=== PATIENT | female | born 1955 ===

== ENCOUNTER 2021-07-15 12:00 | Inpatient (IN) | payer OTHER ==
[~2021-07-15] VITALS: Ht 165.1 cm; Wt 105.2 kg
[2021-07-15] MEDS ORDERED: AVAPRO150 MG PO (13:58)
[2021-07-15] MEDS ORDERED: VASOFL PO (13:59)
[2021-07-15] MEDS ORDERED: LIPITOR PO (13:59)
[2021-07-15] MEDS ORDERED: BIOTINEX PO (14:00)
[2021-07-15] MEDS ORDERED: TRIPLE FLEX CA1 EACH PO (14:01)
[2021-07-15] MEDS ORDERED: CALCIUM 600 +1 EAC3 PO (14:01)
[2021-07-15] MEDS ORDERED: NASAL MIST126 ML (14:01)
[2021-07-18] MEDS ORDERED: NAPROXEN500 MG (08:21)
[2021-07-18] MEDS ORDERED: ATORVASTATIN CA10 MG (08:21)
[2021-07-18] MEDS ORDERED: VASOFLEX TABLE1 EACH (08:21)
[2021-07-18] MEDS ORDERED: BIOTIN1 MG (08:23)
[2021-07-21] MEDS ORDERED: INTESTINEX680 M1 PO (10:31)
[2021-07-21] MEDS ORDERED: LEVOFLOXACIN500 MG PO (10:31)
[2021-07-21] MEDS ORDERED: ULTRAM50 MG PO (10:31)
== END 2021-07-21 11:30 | disposition home or self-care (01) | DRG 331 ==
LOC: O/R 07-18 05:40 → SURH 07-18 05:40
PROVIDERS: ADMIT Surgery; ATTEND Surgery
PROC: 0DTP4ZZ Resection of Rectum, Percutaneous Endoscopic Approach (ICD-10-PCS; 2021-07-18)
PROC: 0DBN4ZZ Excision of Sigmoid Colon, Percutaneous Endoscopic Approach (ICD-10-PCS; principal; 2021-07-18 07:00)
DX: K57.20 Diverticulitis of large intestine with perforation and abscess without bleeding (principal); I13.10 Hypertensive heart and chronic kidney disease without heart failure, with stage 1 through stage 4 chronic kidney disease, or unspecified chronic kidney disease; N18.31 Chronic kidney disease, stage 3a